=== PATIENT | male | born 1965 | race Caucasian/White ===

== ENCOUNTER 2018-12-30 09:41 | Emergency (ER) | payer MEDICAID ==
[~2018-12-30] VITALS: Ht 170.2 cm; Wt 74.8 kg
[2018-12-30 10:14] VITALS: BP_SYST 129
[2018-12-30] MEDS ORDERED: OSELTAMIVIR PHOSPHATE 75 MG CAPSULE PO ONE (11:15)
[2018-12-30 11:34] VITALS: BP_SYST 129
== END 2018-12-30 11:34 | disposition home or self-care (01) ==
LOC: SED 09:41
DX: J11.1 Influenza due to unidentified influenza virus with other respiratory manifestations (principal); R03.0 Elevated blood-pressure reading, without diagnosis of hypertension
CPT/HCPCS: 71045; 86710; 99284; G9035; 36415

== ENCOUNTER 2020-03-27 12:19 | Emergency (ER) | payer BC, MEDICAID ==
[~2020-03-27] VITALS: Ht 170.2 cm; Wt 77.1 kg
[2020-03-27 12:20] VITALS: BP_SYST 122
--- NOTE | 2020-03-27 12:20 | NUR ---
BROUGHT BACK TO BED #6 AND TRIAGED. REPORT GIVEN TO [facility]
--- NOTE | 2020-03-27 12:25 | NUR ---
Pt walked in to ER with c/o fever x 6 days. Reports loss of taste and generalized weakness. V/S stable, pt is afebrile. Pt currently resting in bed, will continue to monitor.
--- NOTE | 2020-03-27 12:35 | NUR ---
ER Dr. Deutsch at bedside examining patient.
--- NOTE | 2020-03-27 12:55 | NUR ---
Radiology at bedside for CXR
--- NOTE | 2020-03-27 12:59 | NUR ---
Urine sample obtained and sent to lab
[2020-03-27 13:38] LABS: EOSINOPHILS % (AUTO) 0.5 % (0.0-4.0); HEMATOCRIT 44.7 % (36-54); HEMOGLOBIN 14.8 g/dL (14.0-18.0); LYMPHOCYTES # (AUTO) 0.7 K/uL (1.0-5.5); LYMPHOCYTES % (AUTO) 18.8 % (20.5-51.5); MEAN CORPUSCULAR HEMOGLOBIN 30 pg (27-31); MEAN CORPUSCULAR HGB CONC 33 % (32-36); MEAN CORPUSCULAR VOLUME 89 fL (79.0-98.0); MONOCYTES # (AUTO) 0.2 K/uL (0.0-1.0); MONOCYTES % (AUTO) 5.9 % (1.7-9.3); NEUTROPHILS # (AUTO) 2.9 K/uL (1.8-7.7); NEUTROPHILS % (AUTO) 73.8 % (40.0-70.0); PLATELET COUNT (AUTO) 149 K/uL (130-430); RED BLOOD CELL COUNT(AUTO) 5.01 MIL/uL (4.2-6.2); RED CELL DISTRIBUTION WIDTH 13.5 % (9.0-15.0)
[2020-03-27 13:46] LABS: BILIRUBIN,URINE NEGATIVE (NEGATIVE); CLARITY/URINE CLEAR (CLEAR); COLOR,URINE YELLOW (YELLOW); GLUCOSE,URINE 1+ (NEGATIVE); KETONES,URINE NEGATIVE (NEGATIVE); LEUKOCYTE ESTERASE ,URINE NEGATIVE (NEGATIVE); NITRITE, URINE NEGATIVE (NEGATIVE); PH,URINE 6.5 (5.0-8.0); PROTEIN URINE NEGATIVE (NEGATIVE); UROBILINOGEN,URINE 0.2 (0.2-1.0)
[2020-03-27 13:48] LABS: BLOOD, URINE TRACE (NEGATIVE)
[2020-03-27 13:49] LABS: CALCIUM 7.9 mg/dL (8.4-11.0); POTASSIUM 4.5 mmol/L (3.5-5.1)
[2020-03-27 13:55] LABS: ALBUMIN 3.6 g/dL (3.4-4.8); TOTAL BILIRUBIN 0.5 mg/dL (0.0-1.0)
[2020-03-27 14:00] LABS: BACTERIA,URINE FEW /HPF (None Seen); WBC,URINE 0-3 /HPF (0-3)
[2020-03-27 14:16] LABS: BARBITURATE, URINE NEGATIVE (NEG <=200); BENZODIAZEPINE, URINE NEGATIVE (NEG <=150); COCAINE, URINE NEGATIVE (NEG <=150); METHAMPHETAMINES SCREEN,URINE NEGATIVE (NEG <=500); URINE AMPHETAMINE NEGATIVE (NEG <=500); URINE METHADONE NEGATIVE (NEG <=200)
[2020-03-27 14:17] LABS: CANNABINOID, URINE NEGATIVE (NEG <=50); OPIATE, URINE POSITIVE (NEG <=100); PHENCYCLIDINE SCREEN,URINE NEGATIVE (NEG <=25); UR TRICYCLIC ANTIDEPRESSANTS NEGATIVE (NEG <=300); URINE OXYCODONE SCREEN NEGATIVE (NEG <=100); URINE PROPOXYPHENE SCREEN NEGATIVE (NEG <=300)
[2020-03-27 14:35] VITALS: BP_SYST 122
--- NOTE | 2020-03-27 14:36 | NUR ---
Patient given written and verbal discharge instructions and verbalizes understanding. ER MD discussed with patient the results and treatment provided. Patient in stable condition. ID arm band removed. No Rx given. Patient educated on pain management and to follow up with PMD. Pain Scale 0/10 . Opportunity for questions provided and answered. Medication side effect fact sheet provided.
== END 2020-03-27 14:36 | disposition home or self-care (01) ==
LOC: SED 12:19
DX: F41.9 Anxiety disorder, unspecified (principal); R53.1 Weakness
CPT/HCPCS: 36415; 71045; 80053; 80307; 81000-TC; 85025; 99284